=== PATIENT | female | born 2000 | race Hispanic/Latino ===

== ENCOUNTER 2022-09-25 05:30 | Inpatient (IN) | payer OTHER ==
[2022-09-25 20:04] VITALS: BMI 34.0
[2022-09-25] MEDS ORDERED: Lidocaine 1% (PF) 30 ML VIAL SC PRN (21:32)
[2022-09-25] MEDS ORDERED: Ondansetron PF 4 MG/2 ML Vial IVP PRN (21:32)
[2022-09-25] MEDS ORDERED: Butorphanol Tartrate 1 MG/ML VIAL SLOW IVP PRN (21:32)
[2022-09-25] MEDS ORDERED: fentaNYL 50 mcg/mL 1 mL Vial SLOW IVP PRN (21:32)
[2022-09-25] MEDS ORDERED: Tranexamic Acid 1,000 MG/10 ML VIAL IVP PRN (21:32)
[2022-09-25] MEDS ORDERED: Misoprostol 100 MCG TAB PO PRN (21:32)
[2022-09-25] MEDS ORDERED: HYDROcodone/Acetaminophen 5/325 mg Tablet PO PRN ×2 (21:32)
[2022-09-25] MEDS ORDERED: Diphenoxylate HCl/Atropine Tablet PO PRN ×2 (21:32)
[2022-09-25] MEDS ORDERED: Carboprost 250 MCG/ML AMP IM PRN (21:32)
[2022-09-25] MEDS ORDERED: Docusate 100 MG CAP PO PRN (21:32)
[2022-09-25] MEDS ORDERED: Misoprostol 200 MCG TAB PR PRN (21:32)
[2022-09-25] MEDS ORDERED: hydrALAZINE 20 MG/ML VIAL SLOW IVP PRN (21:32)
[2022-09-25] MEDS ORDERED: Promethazine HCl 25 MG/ML VIAL IM PRN (21:32)
[2022-09-25] MEDS ORDERED: Ibuprofen 800 MG TAB PO PRN (21:32)
[2022-09-25] MEDS ORDERED: Methylergonovine 0.2 MG/ML VIAL IM PRN (21:32)
[2022-09-25] MEDS ORDERED: NS w/ Oxytocin 30 units 500 ML IV SCH ×3 (21:45)
[2022-09-25 23:03] LABS: Hemoglobin 9.4 g/dL (12.0-15.5); Mean Corpuscular HGB CONC 33.2 g/dL (32.0-36.0); Mean Corpuscular Volume 81.3 fl (81.6-98.3); Mean Platelet Volume 10.5 fl (7.4-10.4); Platelet Count 234 10x3/uL (150-450); RBC Distribution Width 14.8 % (11.5-14.5); Red Blood Cell (RBC) Count 3.48 10x6/uL (3.90-5.03); White Blood Cell (WBC) Count 7.8 10x3/uL (3.5-10.5)
[2022-09-25 23:34] LABS: Hep B Surf Ag - L&D Non-Reactive S/CO (NonReactive); Syphilis Antibody Nonreactive (Nonreactive); Syphilis Antibody Index 0.05 S/CO (<1.00 Non-Reactive)
[2022-09-26] MEDS ORDERED: Misoprostol 100 MCG TAB VAG SCH
[2022-09-26] MEDS: Misoprostol 100 MCG TAB PO SCH ×6 (04:35→19:15)
[2022-09-26] MEDS: Lactated Ringer's 1,000 ML IV SCH ×3 (05:35→23:33)
[2022-09-26] MEDS ORDERED: Bupivacaine 0.25% HCL 30 ML VIAL ONE (15:00)
[2022-09-26] MEDS ORDERED: fentaNYL/Ropivacaine Epidural 100 ML ONE (15:51)
[2022-09-26] MEDS ORDERED: Lactated Ringer's 500 ML IV PRN (17:24)
[2022-09-26] MEDS ORDERED: Acetaminophen 325 MG TAB PO PRN (17:24)
[2022-09-26] MEDS ORDERED: Ondansetron PF 4 MG/2 ML Vial IVP PRN (17:24)
[2022-09-26] MEDS ORDERED: Naloxone HCl 0.4 mg/ml Vial IVP PRN ×2 (17:24)
[2022-09-26] MEDS ORDERED: Promethazine HCl 25 MG/ML VIAL IM PRN (17:24)
[2022-09-26] MEDS ORDERED: ePHEDrine Sulfate 50 MG/10 ML VIAL SLOW IVP PRN (17:24)
[2022-09-26] MEDS ORDERED: diphenhydrAMINE 50 MG/ML VIAL IVP PRN (17:24)
[2022-09-26] MEDS ORDERED: Moisturizing Cream (Eucerin) 113 GM JAR TOP PRN (17:24)
[2022-09-26] MEDS ORDERED: fentaNYL 2 mcg/Ropivacaine 0.2% Epidural 100 ML CADD EPIDURAL SCH (17:30)
[2022-09-26] MEDS ORDERED: Communication Order-Pharmacy FS SCH (17:30)
[2022-09-27] MEDS: Misoprostol 100 MCG TAB PO SCH (04:24)
[2022-09-27] MEDS: Acetaminophen 500 MG TAB PO PRN ×2 (04:37→06:16)
[2022-09-27] MEDS ORDERED: Clindamycin/D5W 900 MG in Premix Bag 1 BAG IVPB SCH (06:00)
[2022-09-27] MEDS ORDERED: Ampicillin 2 GM in Sodium Chloride 0.9% 100 ML IVPB SCH (06:00)
[2022-09-27] MEDS: Lactated Ringer's 1,000 ML IV SCH (06:02)
[2022-09-27] MEDS ORDERED: Methylergonovine 0.2 MG/ML VIAL ONE (08:02)
[2022-09-27] MEDS ORDERED: Misoprostol 200 MCG TAB ONE (08:02)
[2022-09-27] MEDS ORDERED: Tranexamic Acid 1,000 MG/10 ML VIAL ONE (08:03)
[2022-09-27] MEDS ORDERED: Misoprostol 200 MCG TAB PR SCH (09:00)
[2022-09-27] MEDS ORDERED: Milk Of Magnesia 30 ML UDCUP PO PRN (10:02)
[2022-09-27] MEDS ORDERED: hydrALAZINE 20 MG/ML VIAL SLOW IVP PRN (10:02)
[2022-09-27] MEDS ORDERED: NS w/ Oxytocin 30 units 500 ML IV SCH (10:02)
[2022-09-27] MEDS ORDERED: Bisacodyl 10 MG SUPP PR PRN (10:02)
[2022-09-27] MEDS ORDERED: diphenhydrAMINE 25 MG CAP PO PRN (10:02)
[2022-09-27] MEDS ORDERED: Measles/Mumps/Rubella 10 MCG/0.5 ML VIAL SC ONE (10:02)
[2022-09-27] MEDS ORDERED: Methylergonovine 0.2 MG/ML VIAL IM PRN (10:02)
[2022-09-27] MEDS ORDERED: Ondansetron PF 4 MG/2 ML Vial IVP PRN (10:02)
[2022-09-27] MEDS ORDERED: Preparation H Ointment 28 GM TUBE PR PRN (10:02)
[2022-09-27] MEDS ORDERED: Boostrix 0.5 ML (Tdap) VIAL (>/=7 yrs of age) IM ONE (10:02)
[2022-09-27] MEDS ORDERED: Zolpidem Tartrate 5 MG TAB PO PRN (10:02)
[2022-09-27] MEDS ORDERED: Varicella virus, LIVE 0.5 ML VIAL SC ONE (10:02)
[2022-09-27] MEDS ORDERED: Promethazine HCl 25 MG/ML VIAL IM PRN (10:02)
[2022-09-27] MEDS ORDERED: Lanolin Ointment 7 GM TUBE TOP PRN (10:02)
[2022-09-27] MEDS ORDERED: Benzocaine-Menthol 82.5 ML CAN TOP PRN (10:02)
[2022-09-27] MEDS ORDERED: Docusate 100 MG CAP PO SCH (11:00)
[2022-09-27] MEDS ORDERED: Prenatal Vitamin 1 TAB PO SCH (11:00)
[2022-09-27] MEDS: HYDROcodone/Acetaminophen 5/325 mg Tablet PO PRN ×2 (11:12→21:59)
[2022-09-27] MEDS ORDERED: Ampicillin 2 GM VIAL ONE (13:13)
[2022-09-27] MEDS ORDERED: Sodium Chloride 0.9% 100 ML ONE (13:15)
[2022-09-27] MEDS ORDERED: Clindamycin/D5W 900 mg/50 ml Premix Bag ONE (13:31)
[2022-09-27] MEDS: Ampicillin 2 GM in Sodium Chloride 0.9% 100 ML IVPB SCH ×2 (13:39→19:25)
[2022-09-27] MEDS: Ibuprofen 800 MG TAB PO SCH ×2 (13:49→21:57)
[2022-09-27] MEDS: Clindamycin/D5W 900 MG in Premix Bag 1 BAG IVPB SCH ×2 (14:21→21:57)
[2022-09-27] MEDS: Ferrous Sulfate 325 MG TAB PO SCH (18:49)
[2022-09-27] MEDS: Docusate 100 MG CAP PO SCH (21:57)
[2022-09-28] MEDS: Ampicillin 2 GM in Sodium Chloride 0.9% 100 ML IVPB SCH (03:30)
[2022-09-28 05:06] LABS: Hemoglobin 8.2 g/dL (12.0-15.5); Mean Corpuscular HGB CONC 32.5 g/dL (32.0-36.0); Mean Corpuscular Hemoglobin 27.2 pg (27.0-33.0); Mean Corpuscular Volume 83.4 fl (81.6-98.3); Mean Platelet Volume 10.9 fl (7.4-10.4); Platelet Count 237 10x3/uL (150-450); RBC Distribution Width 14.8 % (11.5-14.5); Red Blood Cell (RBC) Count 3.02 10x6/uL (3.90-5.03); White Blood Cell (WBC) Count 16.2 10x3/uL (3.5-10.5)
[2022-09-28] MEDS: Ibuprofen 800 MG TAB PO SCH ×3 (05:30→22:09)
[2022-09-28] MEDS: Clindamycin/D5W 900 MG in Premix Bag 1 BAG IVPB SCH ×2 (05:31→13:41)
[2022-09-28] MEDS: Prenatal Vitamin 1 TAB PO SCH (07:46)
[2022-09-28] MEDS: Docusate 100 MG CAP PO SCH ×2 (07:46→22:09)
[2022-09-28] MEDS: HYDROcodone/Acetaminophen 5/325 mg Tablet PO PRN ×3 (07:47→19:57)
[2022-09-28] MEDS: Ferrous Sulfate 325 MG TAB PO SCH ×2 (07:47→18:04)
[2022-09-28] MEDS ORDERED: Ampicillin 2 GM in Sodium Chloride 0.9% 100 ML IVPB SCH ×3 (10:00→16:00)
[2022-09-29] MEDS: Ibuprofen 800 MG TAB PO SCH ×3 (05:43→06:27)
[2022-09-29] MEDS: HYDROcodone/Acetaminophen 5/325 mg Tablet PO PRN (05:48)
[2022-09-29 08:01] VITALS: BP 107/62; TEMP 97.9
[2022-09-29] MEDS: Docusate 100 MG CAP PO SCH (08:25)
[2022-09-29] MEDS: Ferrous Sulfate 325 MG TAB PO SCH (08:25)
[2022-09-29] MEDS: Prenatal Vitamin 1 TAB PO SCH (08:25)
== END 2022-09-29 11:00 | disposition home or self-care (01) | DRG 807 ==
LOC: CSHLD 19:06 → CSHPP 09-27 10:00
PROVIDERS: ADMIT Obstetrics & Gynecology; ATTEND Obstetrics & Gynecology
PROC: 10E0XZZ Delivery of Products of Conception, External Approach (ICD-10-PCS; principal; 2022-09-27)
DX: O48.0 Post-term pregnancy (principal); Z37.0 Single live birth; Z3A.40 40 weeks gestation of pregnancy; O70.1 Second degree perineal laceration during delivery
CPT/HCPCS: 36415; 51702; 85027; 86780; 86850; 86900; 86901; 87340; 88307; J0290; J1580; J2405; J3010; J3490; J7120; S0020